=== PATIENT | male | born 1995 | race Caucasian/White ===

== ENCOUNTER 2020-05-15 03:19 | Emergency (ER) | payer OTHER ==
[~2020-05-15] VITALS: Ht 177.8 cm; Wt 113.4 kg
[2020-05-15 03:31] VITALS: Ht 177.8 cm; Wt 113.4 kg
[2020-05-15 04:45] VITALS: BP 146/92
== END 2020-05-15 04:45 | disposition home or self-care (01) ==
LOC: ED 03:19
DX: R07.89 Other chest pain (principal); R06.02 Shortness of breath; J45.909 Unspecified asthma, uncomplicated